=== PATIENT | female | born 1985 | race Caucasian/White ===

== ENCOUNTER 2016-10-31 19:44 | Emergency (ER) | payer OTHER ==
[~2016-10-31] VITALS: Ht 170.2 cm; Wt 90.7 kg
[~2016-10-31 19:44] MED LIST: CAMILA0.35 MG PO; IBUPROFEN800 MG PO; INDERAL LA80 MG PO; Inderal LA PO; Motrin PO
[2016-10-31 20:40] LABS: BILIRUBIN NEGATIVE; BLOOD NEGATIVE; COLOR YELLOW ((YELLOW)); GLUCOSE (STRIP) NEGATIVE; KETONES 5; LEUKOCYTES NEGATIVE; NITRITE NEGATIVE; PROTEIN (STRIP) 30; UROBILINOGEN 0.2 MG/DL (0.2-1.0)
[2016-10-31 20:42] LABS: ADD MIUA? NO
[2016-10-31 20:49] LABS: EOSINOPHIL (%) 2.2 % (0-5); EOSINOPHIL COUNT 0.2 K/uL (0-0.3); HEMATOCRIT 41.7 % (36.0-46.0); IMMATURE GRANULOCYTE (%) 0.2 % (0.0-0.7); INSTRUMENT ABS NEUTROPHIL CT 4.5 K/uL; LYMPHOCYTE COUNT 2.9 K/uL (1.0-2.8); MCH 31.5 PG (29.0-34.0); MCHC 33.6 G/DL (30.0-36.0); MCV 93.9 FL (83-99); MEAN PLAT.VOLUME 9.8 uM^3 (9.5-12.4); MONOCYTE COUNT 0.6 K/uL (0-0.8); NEUTROPHIL COUNT 4.5 K/uL (1.8-6.4); PLATELET COUNT 214 K/uL (156-360); RBC DIS.WIDTH-CV 11.9 % (11.8-14.6); RBC DIS.WIDTH-SD 41.1 % (39-53); RED BLOOD COUNT 4.44 M/uL (3.80-5.20); WHITE BLOOD COUNT 8.2 K/uL (4.1-10.2)
[2016-10-31 21:01] LABS: CHLORIDE 105 mEq/L (99-109); SODIUM 139 mEq/L (136-147)
[2016-10-31 21:03] LABS: GLUCOSE 110 mg/dL (70-99)
[2016-10-31 21:04] LABS: ANION GAP 11 MEQ/L (2-14)
[2016-10-31 21:05] LABS: TOTAL BILIRUBIN 0.2 mg/dL (0.0-1.0)
[2016-10-31 21:07] LABS: ALKALINE PHOSPHATASE 52 IU/L (3-129); GFR ESTIMATE (CALCULATED) > 59 mL/min/
[2016-10-31 21:08] LABS: UREA NITROGEN (BUN) 13 mg/dL (9-23)
[2016-10-31 21:10] LABS: LIPASE 63 U/L (1.0-51.0)
[2016-10-31 21:17] LABS: QUANTITATIVE HCG < 4.0 MIU/ML
[2016-11-01] MEDS ORDERED: NORCO 5/3251 TABLET PO (00:18)
[2016-11-01] MEDS ORDERED: ZOFRAN ODT8 MG PO (00:18)
[2016-11-01 00:44] VITALS: BP 131/71
== END 2016-11-01 00:49 | disposition home or self-care (01) ==
LOC: EME 19:44
PROVIDERS: Physician Assistant
DX: K85.90 Acute pancreatitis without necrosis or infection, unspecified (principal)
CPT/HCPCS: 76705; 80053; 81003; 83690; 84702; 85025; 99281; 99285; J2270; J7030

== ENCOUNTER 2017-10-04 09:00 | Outpatient (CLI) | payer OTHER ==
[~2017-10-04] VITALS: Ht 170.2 cm; Wt 98.9 kg
[~2017-10-04 09:00] MED LIST changes: +NORCO 5/3251 TABLET PO; +ZOFRAN ODT8 MG PO
[2017-10-04 09:11] VITALS: BP 133/82
[2017-10-04] MEDS ORDERED: PRENATAL TABLE1 EAC3 PO (09:27)
[2017-10-04] MEDS ORDERED: ZANTAC300 MG PO (09:27)
[2017-10-04] MEDS ORDERED: COLACE100 MG PO (09:27)
== END 2017-10-04 10:55 | disposition home or self-care (01) ==
LOC: LDRP-OP 09:00 → 2WEST 09:01 → LDRP-OP 10:43 → 2WEST 10:55 → LDRP-OP 11-28 10:18
PROC: 10S0XZZ Reposition Products of Conception, External Approach (ICD-10-PCS; principal; 2017-10-04)
DX: O32.2XX0 Maternal care for transverse and oblique lie, not applicable or unspecified (principal); Z3A.35 35 weeks gestation of pregnancy; O26.893 Other specified pregnancy related conditions, third trimester; R10.13 Epigastric pain; L40.9 Psoriasis, unspecified; O26.833 Pregnancy related renal disease, third trimester; N20.0 Calculus of kidney; Z87.442 Personal history of urinary calculi; Z87.891 Personal history of nicotine dependence
CPT/HCPCS: 59025; G0378; J3105

== ENCOUNTER 2017-10-31 07:34 | Inpatient (IN) | payer OTHER ==
[2017-10-31] VITALS (16 sets, daily range): BP systolic 114–139; BP diastolic 65–93
[~2017-10-31] VITALS: Ht 170.2 cm; Wt 102.3 kg
[~2017-10-31 07:34] MED LIST changes: +CLARITIN,ALAVAR10 MG PO; +COLACE100 MG PO; +PRENATAL TABLE1 EAC3 PO; +ZANTAC300 MG PO
[2017-10-31 09:02] LABS: BASOPHIL (%) 0.4 % (0-1); EOSINOPHIL (%) 0.9 % (0-5); EOSINOPHIL COUNT 0.1 K/uL (0-0.3); HEMATOCRIT 37.5 % (36.0-46.0); HEMOGLOBIN 12.3 G/DL (11.9-15.5); IMMATURE GRANULOCYTE (%) 0.2 % (0.0-0.7); LYMPHOCYTE (%) 24.7 % (15-42); MCH 30.2 PG (29.0-34.0); MCHC 32.8 G/DL (30.0-36.0); MCV 92.1 FL (83-99); MONOCYTE (%) 9.8 % (3-12); MONOCYTE COUNT 0.8 K/uL (0-0.8); NEUTROPHIL COUNT 5.2 K/uL (1.8-6.4); PLATELET COUNT 167 K/uL (156-360); RBC DIS.WIDTH-SD 46.9 % (39-53); RED BLOOD COUNT 4.07 M/uL (3.80-5.20); WHITE BLOOD COUNT 8.1 K/uL (4.1-10.2)
[2017-10-31 15:12] LABS: AMPHETAMINE NEGATIVE (500 ng/mL); BARBITURATES NEGATIVE (200 ng/mL); BENZODIAZEPINES NEGATIVE (150 ng/mL); BUPRENORPHINE NEGATIVE (10 ng/mL); COCAINE NEGATIVE (150 ng/mL); METHADONE NEGATIVE (200 ng/mL); METHAMPHETAMINE NEGATIVE (500 ng/mL); OPIATES (MORPHINE) NEGATIVE (100 ng/mL); OXYCODONE NEGATIVE (100 ng/mL); PHENCYCLIDINE NEGATIVE (25 ng/mL); PROPOXYPHENE NEGATIVE (300 ng/mL); THC CANNABINOIDS NEGATIVE (50 ng/mL); TRICYCLIC ANTIDEPRESSANTS NEGATIVE (300 ng/mL)
[2017-11-01] VITALS (20 sets, daily range): BP systolic 106–143; BP diastolic 56–92
[2017-11-02 07:04] LABS: BASOPHIL (%) 0.6 % (0-1); EOSINOPHIL (%) 1.7 % (0-5); EOSINOPHIL COUNT 0.1 K/uL (0-0.3); HEMATOCRIT 34.6 % (36.0-46.0); HEMOGLOBIN 11.1 G/DL (11.9-15.5); IMMATURE GRANULOCYTE (%) 0.3 % (0.0-0.7); LYMPHOCYTE (%) 38.6 % (15-42); LYMPHOCYTE COUNT 2.5 K/uL (1.0-2.8); MCH 30.7 PG (29.0-34.0); MCHC 32.1 G/DL (30.0-36.0); MCV 95.8 FL (83-99); MONOCYTE (%) 7.3 % (3-12); MONOCYTE COUNT 0.5 K/uL (0-0.8); NEUTROPHIL (%) 51.5 % (45-76); NEUTROPHIL COUNT 3.3 K/uL (1.8-6.4); PLATELET COUNT 137 K/uL (156-360); RBC DIS.WIDTH-CV 14.5 % (11.8-14.6); RBC DIS.WIDTH-SD 50.3 % (39-53); RED BLOOD COUNT 3.61 M/uL (3.80-5.20); WHITE BLOOD COUNT 6.4 K/uL (4.1-10.2)
[2017-11-02 07:18] VITALS: BP 127/58
== END 2017-11-02 13:50 | disposition home or self-care (01) | DRG 775 ==
LOC: LDRP-OP 07:34 → 2WEST 07:35 → LDRP-OP 10:22 → 2WEST 11-01 02:50 → LDRP-OP 12-10 11:30
PROVIDERS: Advanced Practice Midwife
PROC: 10907ZC Drainage of Amniotic Fluid, Therapeutic from Products of Conception, Via Natural or Artificial Opening (ICD-10-PCS; principal; 2017-10-31)
PROC: 3E033VJ Introduction of Other Hormone into Peripheral Vein, Percutaneous Approach (ICD-10-PCS; principal; 2017-10-31)
PROC: 3E0R3BZ Introduction of Anesthetic Agent into Spinal Canal, Percutaneous Approach (ICD-10-PCS; 2017-11-01)
PROC: 10E0XZZ Delivery of Products of Conception, External Approach (ICD-10-PCS; 2017-11-01)
PROC: 00HU33Z Insertion of Infusion Device into Spinal Canal, Percutaneous Approach (ICD-10-PCS; 2017-11-01)
DX: O32.0XX0 Maternal care for unstable lie, not applicable or unspecified (principal); O99.354 Diseases of the nervous system complicating childbirth; L40.9 Psoriasis, unspecified; O99.72 Diseases of the skin and subcutaneous tissue complicating childbirth; E66.3 Overweight; O99.214 Obesity complicating childbirth; Z37.0 Single live birth; O76 Abnormality in fetal heart rate and rhythm complicating labor and delivery; M54.16 Radiculopathy, lumbar region; Z3A.39 39 weeks gestation of pregnancy; G43.009 Migraine without aura, not intractable, without status migrainosus; O75.89 Other specified complications of labor and delivery; O69.1XX0 Labor and delivery complicated by cord around neck, with compression, not applicable or unspecified; Z68.31 Body mass index [BMI] 31.0-31.9, adult
CPT/HCPCS: 85025; G0378; J0595; J2795; J3010; J7120